=== PATIENT | male | born 1950 | race Caucasian/White ===

== ENCOUNTER → 2023-02-15 08:54 | Outpatient (BNVA) | payer MEDICARE, SELFPAY | PROVIDERS: Visit Provider Nurse Practitioner Family | DX: S80.822A Blister (nonthermal), left lower leg, initial encounter (principal); S80.821A Blister (nonthermal), right lower leg, initial encounter; X58.XXXA Exposure to other specified factors, initial encounter; L03.115 Cellulitis of right lower limb; L03.116 Cellulitis of left lower limb | CPT/HCPCS: 97597; 97598; 99214; A6210 ==

== ENCOUNTER → 2023-02-22 10:44 | Outpatient (BNVA) | payer MEDICARE, SELFPAY | PROVIDERS: Visit Provider Nurse Practitioner Family | DX: L97.812 Non-pressure chronic ulcer of other part of right lower leg with fat layer exposed (principal); L03.115 Cellulitis of right lower limb; Z09 Encounter for follow-up examination after completed treatment for conditions other than malignant neoplasm | CPT/HCPCS: 97597; 97598 ==

== ENCOUNTER → 2023-03-01 08:38 | Outpatient (BNVA) | payer MEDICARE, SELFPAY | PROVIDERS: Visit Provider Nurse Practitioner Family | DX: L03.115 Cellulitis of right lower limb (principal); L97.812 Non-pressure chronic ulcer of other part of right lower leg with fat layer exposed | CPT/HCPCS: 97597; A6210 ==

== ENCOUNTER → 2023-03-08 10:03 | Outpatient (BNVA) | payer MEDICARE, SELFPAY | PROVIDERS: Visit Provider Nurse Practitioner Family | DX: I96 Gangrene, not elsewhere classified (principal); L03.115 Cellulitis of right lower limb; L97.812 Non-pressure chronic ulcer of other part of right lower leg with fat layer exposed | CPT/HCPCS: 97597 ==

== ENCOUNTER → 2023-03-15 09:44 | Outpatient (BNVA) | payer MEDICARE, SELFPAY | PROVIDERS: Visit Provider Nurse Practitioner Family | DX: I96 Gangrene, not elsewhere classified (principal); L97.812 Non-pressure chronic ulcer of other part of right lower leg with fat layer exposed; L03.115 Cellulitis of right lower limb | CPT/HCPCS: 97597 ==

== ENCOUNTER → 2023-04-12 09:49 | Outpatient (BNVA) | payer MEDICARE, SELFPAY | PROVIDERS: Visit Provider Nurse Practitioner Family | DX: Z09 Encounter for follow-up examination after completed treatment for conditions other than malignant neoplasm (principal); Z87.2 Personal history of diseases of the skin and subcutaneous tissue | CPT/HCPCS: 99212 ==

== ENCOUNTER → 2023-06-18 09:37 | Outpatient (BNVA) | payer MEDICARE, SELFPAY | PROVIDERS: Visit Provider Emergency Medicine | DX: R30.0 Dysuria (principal); R31.1 Benign essential microscopic hematuria | CPT/HCPCS: 81000; 87086 ==

== ENCOUNTER → 2024-10-08 13:29 | Outpatient (BNVA) | payer MEDICARE, SELFPAY | PROVIDERS: PCP Family Medicine; Referring Provider Family Medicine; Visit Provider Anesthesiology Pain Medicine | DX: M54.6 Pain in thoracic spine (principal); M54.50 Low back pain, unspecified; M54.9 Dorsalgia, unspecified | CPT/HCPCS: 72072; 72110; 99204 ==

== ENCOUNTER → 2024-10-10 11:02 | Outpatient (BNVA) | payer MEDICARE, SELFPAY | PROVIDERS: PCP Family Medicine; Visit Provider Anesthesiology Pain Medicine | DX: M79.18 Myalgia, other site (principal); M54.6 Pain in thoracic spine; M54.9 Dorsalgia, unspecified | CPT/HCPCS: 20553; 99214; J1010; J3490 ==